=== PATIENT | female | born 1955 | race African-American/Black ===

== ENCOUNTER 2016-08-18 19:51 | Emergency (ER) | payer MEDICAID ==
[~2016-08-18] VITALS: Ht 167.6 cm; Wt 62.0 kg
[~2016-08-18 19:51] MED LIST: AMLO5TAB4 PO; HYDR12.53 PO; METO25TA35 PO; TRAM50TA2 PO
[2016-08-18 20:05] VITALS: BP 156/109
== END 2016-08-18 22:45 | disposition home or self-care (01) ==
LOC: ED 22:39
DX: Z76.0 Encounter for issue of repeat prescription (principal); K59.00 Constipation, unspecified; I10 Essential (primary) hypertension
CPT/HCPCS: 74000; 82962; 99283

== ENCOUNTER 2018-03-11 20:04 | Emergency (ER) | payer MEDICAID ==
[~2018-03-11] VITALS: Ht 170.2 cm; Wt 62.8 kg
[2018-03-11 20:33] VITALS: BP 134/99
[2018-03-11 20:41] LABS: BASOPHILS # (AUTO) 0.05 x10^3/uL (0-0.1); BASOPHILS % (AUTO) 1 % (0-1); EOSINOPHILS # (AUTO) 0.25 x10^3/uL (0-0.4); EOSINOPHILS % (AUTO) 4 % (1-7); LYMPHOCYTES # (AUTO) 3.02 x10^3/uL (1-3.4); LYMPHOCYTES % (AUTO) 44 % (22-44); MD NO; MEAN CORPUSCULAR HEMOGLOBIN 30.2 pg (27.0-34.8); MEAN CORPUSCULAR HGB CONC 33.8 g/dL (32.4-35.8); MEAN CORPUSCULAR VOLUME 89.5 fL (80-100); MEAN PLATELET VOLUME 10.2 fL (7.4-10.4); MONOCYTES # (AUTO) 0.53 x10^3/uL (0.2-0.8); MONOCYTES % (AUTO) 8 % (2-9); NEUTROPHILS # (AUTO) 3.09 x10^3/uL (1.8-6.8); NEUTROPHILS % (AUTO) 45 % (42-75); PLATELET COUNT 136 x10^3/uL (130-400); RED BLOOD COUNT 3.79 x10^6/uL (3.82-5.3); RED CELL DISTRIBUTION WIDTH 14.3 % (9.6-15.2)
[2018-03-11 20:51] LABS: ALANINE AMINOTRANSFERASE 36 U/L (12-78); ALBUMIN 3.3 g/dL (3.4-5.0); ANION GAP 8 mmol/L (5-15); CALCIUM 8.3 mg/dL (8.5-10.1); CHLORIDE 112 mmol/L (98-107)
[2018-03-11 20:54] LABS: ALKALINE PHOSPHATASE 76 U/L (45-117); BILIRUBIN,TOTAL 0.2 mg/dL (0.2-1.0)
[2018-03-11 20:55] LABS: CULTURE INDICATED? NO; MICROSCOPIC NOT IND
== END 2018-03-11 21:48 | disposition home or self-care (01) ==
LOC: ED 21:19
DX: H92.03 Otalgia, bilateral (principal); I10 Essential (primary) hypertension; R51 Headache; Z72.9 Problem related to lifestyle, unspecified
CPT/HCPCS: 36415; 80053; 81003; 85025; 93005; 99285